=== PATIENT | female | born 1975 | race Two or more races ===

== ENCOUNTER 2021-04-01 15:08 | Outpatient (CLI) | payer OTHER | END 2021-04-01 16:19 | disposition home or self-care (01) | LOC: OFIC 805 15:08 | PROVIDERS: ATTEND Otolaryngology Otology & Neurotology | DX: H71.22 Cholesteatoma of mastoid, left ear (principal); H90.12 Conductive hearing loss, unilateral, left ear, with unrestricted hearing on the contralateral side; H72.12 Attic perforation of tympanic membrane, left ear ==

== ENCOUNTER 2021-05-23 05:30 | Day surgery (SDC) | payer OTHER ==
[~2021-05-23 05:30] MED LIST: LAMICTAL200 M1 PO; RESTORIL PO; SEROQUEL200 MG PO; ZOLOFT50 MG PO
[2021-05-23] MEDS ORDERED: CILOXAN5 ML OTIC (10:34)
[2021-05-23] MEDS ORDERED: AMOXICILLIN500 MG PO (10:34)
== END 2021-05-23 12:15 | disposition home or self-care (01) ==
LOC: CIR.AMB 05:30
PROVIDERS: ATTEND Otolaryngology Otology & Neurotology
DX: H71.12 Cholesteatoma of tympanum, left ear (principal); H71.22 Cholesteatoma of mastoid, left ear; H72.12 Attic perforation of tympanic membrane, left ear; H90.12 Conductive hearing loss, unilateral, left ear, with unrestricted hearing on the contralateral side; Z20.822 Contact with and (suspected) exposure to COVID-19

== ENCOUNTER 2022-02-27 06:00 | Day surgery (SDC) | payer OTHER ==
[~2022-02-27 06:00] MED LIST changes: +AMOXICILLIN500 MG PO; +CILOXAN5 ML OTIC; +LEXAPRO5 MG PO
[2022-02-27] MEDS ORDERED: CEPHALEXIN500 M1 PO (09:29)
[2022-02-27] MEDS ORDERED: CILOXAN5 ML OTIC (09:29)
== END 2022-02-27 11:40 | disposition home or self-care (01) ==
LOC: CIR.AMB 06:00
PROVIDERS: ATTEND Otolaryngology Otology & Neurotology
DX: H70.12 Chronic mastoiditis, left ear (principal); H90.12 Conductive hearing loss, unilateral, left ear, with unrestricted hearing on the contralateral side; H72.12 Attic perforation of tympanic membrane, left ear; F41.9 Anxiety disorder, unspecified